=== PATIENT | male | born 1985 | race Caucasian/White ===

== ENCOUNTER 2018-07-19 17:12 | Emergency (ER) | payer OTHER ==
[~2018-07-19] VITALS: Ht 188 cm; Wt 90.7 kg
[2018-07-19] MEDS ORDERED: KEFLEX500 M1 PO (18:34)
[2018-07-19] MEDS ORDERED: FLEXERIL PO (18:34)
[2018-07-19] MEDS ORDERED: NAPROSYN500 MG PO (18:34)
[2018-07-19 18:43] VITALS: BP 142/96
== END 2018-07-19 18:43 | disposition home or self-care (01) ==
LOC: M.ERS 17:12
DX: S01.81XA Laceration without foreign body of other part of head, initial encounter (principal); V86.59XA Driver of other special all-terrain or other off-road motor vehicle injured in nontraffic accident, initial encounter; Y92.89 Other specified places as the place of occurrence of the external cause; Y93.89 Activity, other specified; Y99.8 Other external cause status

== ENCOUNTER 2021-01-30 17:52 | Emergency (ER) | payer BC ==
[~2021-01-30] VITALS: Ht 182.9 cm; Wt 104.3 kg
[~2021-01-30 17:52] MED LIST: FLEXERIL PO; KEFLEX500 M1 PO; NAPROSYN500 MG PO
[2021-01-30 18:35] VITALS: BP 122/60
== END 2021-01-30 18:36 | disposition home or self-care (01) ==
LOC: M.ERS 17:52
DX: I83.891 Varicose veins of right lower extremity with other complications (principal)